=== PATIENT | female | born 1980 | race Caucasian/White ===

== ENCOUNTER → 2021-09-04 14:45 | Outpatient (BNVA) | payer BC, SELFPAY | PROVIDERS: Visit Provider Family Medicine | DX: K86.1 Other chronic pancreatitis (principal); Q45.3 Other congenital malformations of pancreas and pancreatic duct; R30.0 Dysuria; Z76.89 Persons encountering health services in other specified circumstances; R10.9 Unspecified abdominal pain; G89.29 Other chronic pain | CPT/HCPCS: 80053; 81000; 84443; 85025 ==

== ENCOUNTER 2022-03-14 14:20 | Outpatient (CLI) | payer BC, SELFPAY ==
--- NOTE | 2022-03-14 14:37 | XR_ITS ---
WS: [id number] Exam: XR sacrum coccyx min 2V [id number] Date/Time of Exam: 03/14/2022 2:41 PM Reason For Exam: Low back pain, LLE neuropathy No sacrococcygeal fracture or dislocation. No bone destruction. SI joints are open. XR/XR sacrum coccyx min 2V [id number] IMPRESSION: 1. Unremarkable sacrum and coccyx.
--- NOTE | 2022-03-14 14:37 | XR_ITS ---
WS: [id number] Exam: XR lumbar spine 2-3V* [id number] Date/Time of Exam: 03/14/2022 2:41 PM Reason For Exam: Low back pain, neuropathy of L LE No fracture or dislocation. Disc spaces are preserved. Posterior elements are intact. XR/XR lumbar spine 2-3V* [id number] IMPRESSION: 1. Negative lumbar spine study.
== END 2022-03-14 14:21 | disposition home or self-care (01) ==
PROVIDERS: PCP Family Medicine; Visit Provider Family Medicine
DX: G89.29 Other chronic pain (principal); G57.80 Other specified mononeuropathies of unspecified lower limb; M54.50 Low back pain, unspecified
CPT/HCPCS: 72100; 72220

== ENCOUNTER → 2022-09-12 08:52 | Outpatient (BNVA) | payer BC, MEDICAID, SELFPAY | PROVIDERS: PCP Family Medicine; Visit Provider Family Medicine | DX: M54.50 Low back pain, unspecified (principal); R15.9 Full incontinence of feces; G57.82 Other specified mononeuropathies of left lower limb; R10.9 Unspecified abdominal pain | CPT/HCPCS: 80053; 80061; 82784; 83516; 84443; 85025; 85651; 86140 ==